=== PATIENT | male | born 1965 | race Caucasian/White ===

== ENCOUNTER 2019-07-04 05:44 | Inpatient (IN) | payer BC ==
[2019-07-03 20:30] VITALS: BP 106/60
[~2019-07-04] VITALS: Ht 170.2 cm; Wt 79.4 kg
[~2019-07-04 05:44] MED LIST: NOHOMEMEDICATIONS
[2019-07-04 05:49] VITALS: BP 118/49
[2019-07-04 06:35] LABS: URINE BILIRUBIN NEGATIVE (Negative); URINE BLOOD NEGATIVE (Negative); URINE CLARITY CLEAR; URINE COLOR YELLOW; URINE GLUCOSE-RANDOM NEGATIVE (Negative); URINE KETONES NEGATIVE (Negative); URINE LEUKOCYTES-REFLEX NEGATIVE (Negative); URINE NITRITE-REFLEX NEGATIVE (Negative); URINE PROTEIN NEGATIVE (Negative); URINE SPECIFIC GRAVITY >= 1.030 (1.005-1.030)
[2019-07-04 06:55] LABS: INFLUENZA A ANTIGEN Negative (Negative); INFLUENZA B ANTIGEN Negative (Negative)
[2019-07-04 07:02] LABS: ABSOLUTE EOSINOPHILS 0.2 thou/uL (0.0-0.7); ABSOLUTE LYMPHOCYTES 1.2 thou/uL (0.8-5.3); ABSOLUTE MONOCYTES 0.4 thou/uL (0.0-1.2); ABSOLUTE NEUTROPHILS 2.7 thou/uL (1.6-8.1); BASOPHILS 0.7 %; EOSINOPHILS 4.3 %; HEMATOCRIT 36.1 % (42.0-52.0); HEMOGLOBIN 11.9 gm/dL (14.0-18.0); LYMPHOCYTES 26.7 %; MCHC 32.8 g/dL (28.0-37.0); MCV 88.2 fL (80.0-100.0); NUCLEATED RBCS 0 /100WBC; PLATELET COUNT* 189 thou/uL (150-400); POLYS 59.3 %; RDW-CV 13.6 % (10.5-14.5); WBC 4.6 thou/uL (4.0-11.0)
[2019-07-04 07:10] LABS: CALCIUM 7.3 mg/dL (8.5-10.1); CREATININE 0.8 mg/dL (0.6-1.3); POTASSIUM 3.6 mmol/L (3.5-5.1)
[2019-07-04 07:15] LABS: ALBUMIN 2.4 g/dL (3.4-5.0); TOTAL BILIRUBIN 0.2 mg/dL (<0.1-1.0); TOTAL PROTEIN 5.1 g/dL (6.4-8.2)
[2019-07-04 09:51] VITALS: BP 135/74
[2019-07-04 09:52] LABS: AMP/METHAMP Negative (Negative); BARBITURATES Negative (Negative); BENZODIAZEPINES Negative (Negative); COCAINE Negative (Negative); METHADONE Negative (Negative); OPIATES Negative (Negative); PCP Negative (Negative); THC POSITIVE (Negative)
[2019-07-04 10:00] VITALS: BP 136/73
[2019-07-04 11:30] LABS: CHOLESTEROL 156 mg/dL (<200); HDL CHOLESTEROL 35 mg/dL (>40); LDL CHOLESTEROL 96 mg/dL (<100); MAGNESIUM 1.9 mg/dL (1.8-2.4); PHOSPHORUS* 3.2 mg/dL (2.5-4.9); TC:HDL 4.5 Ratio (Not establshd); TRIGLYCERIDE 127 mg/dL (<150); VLDL 25 mg/dL (<40)
[2019-07-04 11:31] LABS: SERUM ASSESSMENT Clear
[2019-07-04 11:42] VITALS: BP 132/78
--- NOTE | 2019-07-04 14:11 | EKG ---
[place] [address] ELECTROCARDIOGRAM REPORT Name: LIN RAMOS Room: [address] ADM IN M.R.#: [id number] Admission: 07/04/19 Attend Phys: Leticia Yang Discharge: Date of : 61 Report #: [id number] THIS REPORT FOR: //name// [facility] ED Test Date: 2019-07-04 Test Time: 07:57:14 Pat Name: LIN RAMOS Department: Room: [facility] Gender: M Analytical Consultant: : 1965 Requested By: Freddie Encarnacion Order Number: [id number] MD: Gustabo Carson Measurements Intervals Clifford Rate: 44 P: 7 OR: 216 QRS: 15 QRSD: 106 T: 37 QT: 460 QTc: 394 Interpretive Statements Sinus bradycardia Borderline prolonged OR interval Minimal ST elevation, anterior leads, consider early repolarization No previous ECG available for comparison Electronically Signed On 07-04-2019 14:11:01 SYSTEMS DEVELOPMENT CONSULTANT by Gustabo Carson [email or web address] <ELECTRONICALLY SIGNED> By: Gustabo Carson MD, [facility] 07/04/19 [id number] Gustabo Carson MD, FAC /EPI
--- NOTE | 2019-07-04 16:14 | 2DMMODE ---
[place] [address] 2 D/M-MODE ECHOCARDIOGRAM Name: LIN RAMOS Room: [address] ADM IN [facility]#: [id number] Admission: 07/04/19 Attend Phys: Leticia huerta Sa Discharge: Date of : 61 Date of Service: 07/04/19 1614 Report #: [id number] THIS REPORT FOR: //name// APPROVED REPORT Study performed: 07/04/2019 14:50:56 EXAM: Comprehensive 2D, Doppler, and color-flow Echocardiogram Patient Location: In-Patient Room #: [facility] Status: routine BSA: 1.91 HR: 45 bpm BP: 132/78 mmHg Rhythm: NSR Other Information Study Quality: Good Indications Arrhythmia 2D Dimensions IVSd: 11.24 (7-11mm) LVOT Diam: 19.69 (18-24mm) LVDd: 37.79 mm PWd: 9.78 (7-11mm) Ascending Ao: 24.37 (22-36mm) LVDs: 24.70 (25-40mm) Aortic Root: 28.85 mm Volumes Left Atrial Volume (Systole) LA ESV Index: 29.40 mL/m2 Aortic Valve AoV Peak Suman.: 1.52 m/s AO Peak Gr.: 9.26 mmHg LVOT Max P.99 mmHg AO Mean Gr.: 4.00 mmHg LVOT Mean P.35 mmHg LVOT Max V: 1.22 m/s AO V2 VTI: 30.42 cm LVOT Mean V: 0.68 m/s JOVANNI (VTI): 2.67 cm2 LVOT V1 VTI: 26.65 cm Mitral Valve E/A Ratio: 1.72 MV Decel. Time: 223.77 ms MV E Max Suman.: 0.86 m/[place] [address] 2 D/M-MODE ECHOCARDIOGRAM Name: LIN RAMOS Room: [address] IN M.R.#: [id number] Admission: 07/04/19 Attend Phys: Leticia huerta Sa Discharge: Date of : 61 Date of Service: 07/04/19 1614 Report #: [id number] MV PHT: 64.89 ms MVA (PHT): 3.39 cm2 TDI E/Lateral E': 6.62 E/Medial E': 7.82 Medial E' Suman.: 0.11 m/s Lateral E' Suman.: 0.13 m/s Pulmonary Valve PV Peak Suman.: 1.31 m/s PV Peak Gr.: 6.91 mmHg Tricuspid Valve RAP Estimate: 5.00 mmHg TR Peak Gr.: 22.49 mmHg RVSP: 27.00 mmHg PA Pressure: 27.00 mmHg Left Ventricle The left ventricle is normal size. There is normal LV segmental wall motion. There is normal left ventricular wall thickness. Left ventricular systolic function is normal. LVEF is 60-65%. The left ventricular diastolic function is normal. Right Ventricle The right ventricle is normal size. The right ventricular systolic function is normal. Atria The left atrium size is normal. The right atrium size is normal. Aortic Valve The aortic valve is normal in structure. Trace aortic regurgitation. There is no aortic valvular stenosis. Mitral Valve The mitral valve is normal in structure. There is no mitral valve regurgitation noted. No evidence of mitral valve stenosis. Tricuspid Valve The tricuspid valve is normal in structure. Trace tricuspid regurgitation. No pulmonary hypertension. Pulmonic Valve The pulmonary valve is normal in structure. There is no pulmonic [place] [address] 2 D/M-MODE ECHOCARDIOGRAM Name: LIN RAMOS Room: [address] IN [facility]#: [id number] Admission: 07/04/19 Attend Phys: Leticia huerta Sa Discharge: Date of : 61 Date of Service: 07/04/19 1614 Report #: [id number] Great Vessels The aortic root is normal in size. IVC is normal in size and collapses >50% with inspiration. Pericardium There is no pericardial effusion. <Conclusion> The left ventricle is normal size. There is normal left ventricular wall thickness. Left ventricular systolic function is normal. LVEF is 60-65%. The left ventricular diastolic function is normal. Trace aortic regurgitation. Trace tricuspid regurgitation. No pulmonary hypertension. IVC is normal in size and collapses >50% with inspiration. <ELECTRONICALLY SIGNED> By: Gustabo Carson MD, FACC 07/04/19 [phone] Gustabo Carson MD, FACC /INF
[2019-07-04 16:16] VITALS: BP 107/63
[2019-07-04 18:49] VITALS: BP 107/63
[2019-07-05] VITALS: BP 95/48
[2019-07-05 04:00] VITALS: BP 103/63
[2019-07-05 04:33] LABS: HEMATOCRIT 36.7 % (42.0-52.0); MCHC 32.7 g/dL (28.0-37.0); MCV 88.7 fL (80.0-100.0); MPV 7.9 fl. (7.2-11.1); RBC 4.14 mil/uL (4.50-6.00); RDW-CV 13.8 % (10.5-14.5); WBC 4.6 thou/uL (4.0-11.0)
[2019-07-05 04:39] LABS: CALCIUM 7.6 mg/dL (8.5-10.1); CREATININE 0.8 mg/dL (0.6-1.3)
--- NOTE | 2019-07-05 06:38 | NUR ---
PT SLEPT MOST OF SHIFT. ASSESSMENT DOCUMENTED. MEDS GIVEN PER E-MAR. IV PATENT, FLUIDS INFUSING. TYLENOL GIVEN FOR HEADACHE. PT SB ON MONITOR WITHOUT SYMPTOMS. WILL CONTINUE WITH PLAN OF CARE.
[2019-07-05 08:00] VITALS: BP 125/66
--- NOTE | 2019-07-05 09:27 | TST ---
[place] [address] TREADMILL STRESS TEST Name: LIN RAMOS Room: [address] M.RAndrea#: [id number] Admission: 07/04/19 Attend Phys: Leticia huerta Sa Discharge: Date of : 61 Date of Service: 07/04/19 1738 Report #: [id number] THIS REPORT FOR: //name// CC: SHERMAN physician/PCP Leticia Wills DATE OF SERVICE: 07/04/2019 INDICATION: Bradycardia and chest pain. CARDIAC RISK FACTORS: Age greater than 45. CARDIAC MEDICATIONS: Aspirin 325 mg daily. The patient exercised per standard Chris protocol for a total of 8 minutes and 54 seconds. Exercise was stopped due to fatigue. The patient achieved 88% of the maximum predicted heart rate at an energy expenditure equivalent to 10.16 METS. The resting blood pressure was 111/80 mmHg with resting pulse rate of 43 beats per minute. At peak exercise, the blood pressure was 192/86 mmHg with a peak stress heart rate of 145 beats per minute. In recovery, the blood pressure was 118/80 mmHg with a recovery heart rate of 77 beats per minute. The baseline 12-lead EKG shows sinus bradycardia without significant ST or T-wave abnormality. EKGs obtained during and post-exercise show sinus rhythm and sinus tachycardia with no significant ST or T-wave changes when compared to baseline. There were no stress-induced arrhythmias. IMPRESSION: Standard Chris protocol exercise stress test that shows no EKG or clinical evidence to suggest stress-induced ischemia. CONCLUSION: No EKG or clinical evidence to suggest stress-induced ischemia. This is a low-risk study. <ELECTRONICALLY SIGNED> By: Gustabo Carson MD, FACC 07/05/19 0927 1738 [id number] Gustabo Carson MD, FACC /nt
--- NOTE | 2019-07-05 09:28 | CON ---
[address] [address] CONSULTATION Name: LIN RAMOS Room: [address] David#: [id number] Admission: 07/04/19 Attend Phys: Leticia Yang Discharge: Date of : 61 Report #: [id number] THIS REPORT FOR: //name// CC: SHERMAN physician/PCP Leticia Wills DATE OF SERVICE: 07/04/2019 CARDIOLOGY CONSULT INDICATION: Bradycardia. HISTORY OF PRESENT ILLNESS: The patient is a 53-year-old gentleman with no prior cardiac history. He was seen in the Emergency Room early this morning with complaints of chills and scratchy throat as well as chest congestion. He was noted to be bradycardic in the Emergency Room with heart rates in the 40s and 50s. He denies syncope, lightheadedness or dizziness. He is not having luis chest pain. Cardiac enzymes are unremarkable. EKG shows a sinus bradycardia with no acute ST or T-wave abnormalities. PAST MEDICAL HISTORY: Left index fingertip amputation. HOME MEDICATIONS: None. ALLERGIES: None. FAMILY HISTORY: Paternal grandfather had coronary disease. SOCIAL HISTORY: The patient drinks alcohol occasionally. He smokes cigarettes daily. PHYSICAL EXAMINATION: VITAL SIGNS: Heart rate 47, blood pressure 114/63. GENERAL: This is a pleasant gentleman who is in no distress. Mood and affect appropriate. HEENT: Extraocular muscles intact. Mucous membranes are moist. Dentition poor. NECK: Shows no jugular venous distention. There are no carotid bruits. CHEST: Reveals clear lung alejandro without wheezes, rales or rhonchi. CARDIOVASCULAR: Reveals a bradycardic rate that is regular, without gallop or murmur. ABDOMEN: Reveals normal bowel sounds. The abdomen is soft and nontender. EXTREMITIES: Shows no edema. Peripheral pulses are 2+ and easily palpable. SKIN: Warm and dry. RADIOGRAPHIC DATA: Chest x-ray shows no acute [place] [address] CONSULTATION Name: LIN RAMOS Room: [address]#: [id number] Admission: 07/04/19 Attend Phys: Leticia Yang Discharge: Date of : 61 Report #: [id number] LABORATORY DATA: Labs are reviewed. Total cholesterol 156, triglycerides 127, HDL 35, LDL 96. Troponin is less than 0.06. IMPRESSION AND RECOMMENDATIONS: 1. Sinus bradycardia relatively asymptomatic. Obtaining exercise stress test to see if he has decent chronotropic response to exercise. At this point, I would do nothing further. I have ordered an echocardiogram to evaluate underlying cardiac structure and function. 2. Chest congestion likely upper respiratory infection. Symptoms do not sound compatible with angina. A stress test has been ordered and we will follow. <ELECTRONICALLY SIGNED> By: Gustabo Carson MD, [facility] 07/05/19 0928 1231 [id number] Carson MD, FACC /nt
[2019-07-05] MEDS ORDERED: TYLENOL WITH CO1 TA1 PO (10:45)
[2019-07-05] MEDS ORDERED: MUCINEX600 MG PO (10:45)
[2019-07-05 11:48] VITALS: BP 122/65
[2019-07-05 14:30] VITALS: BP 107/63
--- NOTE | 2019-07-05 18:27 | NUR ---
PT VSS, SINUS TRAV ON TELE, A&OX4, UP AD MARINA, POSSESSIONS AND CALL LIGHT WITHIN REACH. HOURLY ROUNDING PERFORMED. REC DISCHARGE ORDERS, REVIEWED WITH PATIENT ANSWERED QUESTIONS. PAPER SCRIPTS AND CARE NOTES GIVEN TO PATIENT. REMOVED TELE MONITOR AND IV WITHOUT COMPLICATION. PATIENT WALKED TO THE FRONT DOOR WITH NURSING STAFF AND WAS PICKED UP BY SISTER.
== END 2019-07-05 15:45 | disposition home or self-care (01) | DRG 153 ==
LOC: M.ERS 05:44 → M.TBA-ER 08:41 → M.2W 08:41
PROVIDERS: Personal Emergency Response Attendant; ADMIT Family Medicine
DX: J06.9 Acute upper respiratory infection, unspecified (principal); E44.0 Moderate protein-calorie malnutrition; E78.5 Hyperlipidemia, unspecified; F17.210 Nicotine dependence, cigarettes, uncomplicated; F12.90 Cannabis use, unspecified, uncomplicated; Z68.27 Body mass index [BMI] 27.0-27.9, adult; Z89.012 Acquired absence of left thumb; Z82.49 Family history of ischemic heart disease and other diseases of the circulatory system; Z23 Encounter for immunization